=== PATIENT | male | born 1950 | race African-American/Black ===

== ENCOUNTER 2021-06-01 09:13 | Inpatient (IN) ==
[2021-06-01 17:41] LABS: Basophils % 0.1 % (0.0-0.8); Eosinophils # 0.1 10*3/uL (0.0-0.87); Eosinophils % 0.8 % (0.00-10.9); Hematocrit 35.4 VOL% (42.0-52.0); Hemoglobin 10.8 GM/DL (14.0-18.0); Immature Granulocytes % 0.7 %; Immature Granulocytes Absolute 0.06 #; Lymphocytes # 0.9 10*3/uL (1.4-4.0); Lymphocytes % 9.7 % (21.2-54.2); Mean Corpuscular HGB Conc 30.5 GM/DL (32-36); Mean Corpuscular Volume 82.7 FL (87-102); Mean Platelet Volume 9.3 FL (9.6-12.0); Monocytes % 12.4 % (1.7-12.7); Neutrophils % 76.3 % (38.7-73.9); Platelet Count 526 T/CUMM (130-400); Red Blood Count 4.28 MC/CUMM (3.8-5.5); Red Cell Distribution Width 14.2 % (9.3-17.3)
[2021-06-01 18:01] LABS: Bacteria,Urine Occasional /HPF (Few); Bilirubin,Urine Negative (Negative); Blood, Urine Negative (Negative); Glucose,Urine (UA) Negative (Negative); Hyaline Casts,Urine 39 /LPF (0-3); Ketones,Urine Negative (Negative); Mucus,Urine Occasional /LPF (Occasional); Nitrite,Urine Negative (Negative); Protein,Urine 100 MG/DL; RBC,Urine 5 /HPF (0-4); Squamous Epithelial Cell,Urine Occasional /HPF (0-10); Urine Appearance Slightly Hazy (Clear); Urine Color Amber (Yellow); Urine Specific Gravity 1.019 (1.001-1.035); Urine Urobilinogen < 2.0 EU/DL (0.2-1.0)
[2021-06-01 18:08] LABS: Albumin 3.7 G/DL (3.4-5.0); Bilirubin,Total 0.6 MG/DL (0.20-1.00); Calcium 9.4 MG/DL (8.5-10.1); Osmolality,Calculated 289.8 MOS/KG (273-304); Potassium 3.4 MMOL/L (3.5-5.1)
[2021-06-01] MEDS ORDERED: SODIUM CHLORIDE 0.9% 1,000 ML IV STA (19:12)
[2021-06-01] MEDS ORDERED: SODIUM CHLORIDE 0.9% 2,000 ML IV STA (19:12)
[2021-06-01] MEDS ORDERED: ACETAMINOPHEN 325 MG TABLET PO PRN (20:50)
[2021-06-01] MEDS ORDERED: DEXTROSE 50% 25 GM/50 ML VIAL IV PRN (20:50)
[2021-06-01] MEDS ORDERED: GLUCAGON 1 MG VIAL IM PRN (20:50)
[2021-06-01] MEDS ORDERED: chlorproMAZINE INJ 25 MG in SODIUM CHLORIDE 0.9% 100 ML IV PRN (20:59)
[2021-06-01] MEDS ORDERED: SODIUM CHLORIDE 0.9% 1,000 ML IV SCH (21:00)
[2021-06-01] MEDS: HEPARIN 5,000 UNIT/1 ML VIAL SUBCUT SCH (23:00)
[2021-06-01] MEDS ORDERED: PNEUMOCOCCAL VACCINE (13 VALENT) 0.5 ML SYRINGE IM ONE (23:58)
[2021-06-02 06:42] LABS: Albumin 3.1 G/DL (3.4-5.0); Bilirubin,Direct 0.28 MG/DL (0.0-0.20); Bilirubin,Indirect 0.6 MG/DL (0.0-1.0); Bilirubin,Total 0.9 MG/DL (0.20-1.00); Total Protein 7.9 G/DL (6.4-8.2)
[2021-06-02 06:48] LABS: Albumin 3.1 G/DL (3.4-5.0); Bilirubin,Total 1.3 MG/DL (0.20-1.00); Calcium 8.7 MG/DL (8.5-10.1); Osmolality,Calculated 299.1 MOS/KG (273-304); Potassium 2.9 MMOL/L (3.5-5.1); Thyroid Stimulating Hormone 2.53 uIU/ml (0.358-3.74); Total Protein 7.8 G/DL (6.4-8.2)
[2021-06-02 08:10] LABS: Hepatitis B Core IgM Quant < 0.05 Index; Hepatitis B Surface Ag Quant < 0.10 Index; Hepatitis B Surface Ag Result Non-Reactive (NonReactive); Hepatitis C Virus Ab Quant 0.12 Index; Hepatitis C Virus Ab Result Non-Reactive (NonReactive)
[2021-06-02] MEDS ORDERED: PANTOPRAZOLE 40 MG VIAL IV SCH (09:00)
[2021-06-02] MEDS: HEPARIN 5,000 UNIT/1 ML VIAL SUBCUT SCH (09:05)
[2021-06-02] MEDS: ONDANSETRON 4 MG/2 ML VIAL IV PRN ×2 (09:05→15:40)
[2021-06-02] MEDS: SODIUM CHLOR 0.9% KCL 40 MEQ 40 MEQ/1,000 ML BAG IV SCH ×2 (09:53→21:52)
[2021-06-02] MEDS: METOCLOPRAMIDE 10 MG/2 ML VIAL IV SCH ×3 (12:05→23:16)
[2021-06-02] MEDS: INSULIN LISPRO 100 UNIT/ML SUBCUT SCH ×2 (17:39→21:46)
[2021-06-02] MEDS: PANTOPRAZOLE 40 MG VIAL IV SCH (21:52)
[2021-06-03] MEDS: METOCLOPRAMIDE 10 MG/2 ML VIAL IV SCH ×3 (06:04→23:53)
[2021-06-03 06:22] LABS: Basophils % 0.2 % (0.0-0.8); Eosinophils # 0.1 10*3/uL (0.0-0.87); Eosinophils % 1.9 % (0.00-10.9); Hematocrit 28.5 VOL% (42.0-52.0); Hemoglobin 8.9 GM/DL (14.0-18.0); Immature Granulocytes % 0.6 %; Immature Granulocytes Absolute 0.03 #; Lymphocytes # 0.5 10*3/uL (1.4-4.0); Lymphocytes % 9.7 % (21.2-54.2); Mean Corpuscular HGB Conc 31.2 GM/DL (32-36); Mean Corpuscular Volume 82.1 FL (87-102); Mean Platelet Volume 9.9 FL (9.6-12.0); Monocytes % 9.9 % (1.7-12.7); Neutrophils % 77.7 % (38.7-73.9); Platelet Count 321 T/CUMM (130-400); Red Blood Count 3.47 MC/CUMM (3.8-5.5); Red Cell Distribution Width 14.3 % (9.3-17.3); White Blood Count 5.3 T/CUMM (4-12)
[2021-06-03 06:41] LABS: Albumin 2.8 G/DL (3.4-5.0); Bilirubin,Total 2.4 MG/DL (0.20-1.00); Calcium 8.8 MG/DL (8.5-10.1); Osmolality,Calculated 296.8 MOS/KG (273-304); Potassium 3.6 MMOL/L (3.5-5.1); Total Protein 6.9 G/DL (6.4-8.2)
[2021-06-03] MEDS ORDERED: LACTATED RINGERS 1,000 ML IV SCH (07:00)
[2021-06-03] MEDS ORDERED: LIDOCAINE 2% 5 ML VIAL ONE (07:13)
[2021-06-03] MEDS ORDERED: propofoL 200 MG/20 ML VIAL IV ONE (07:13)
[2021-06-03] MEDS: SODIUM CHLOR 0.9% KCL 40 MEQ 40 MEQ/1,000 ML BAG IV SCH (08:53)
[2021-06-03] MEDS: INSULIN LISPRO 100 UNIT/ML SUBCUT SCH ×3 (09:00→21:01)
[2021-06-03] MEDS: PANTOPRAZOLE 40 MG VIAL IV SCH ×2 (09:25→20:47)
[2021-06-03 15:50] LABS: INR 1.1
[2021-06-03] MEDS: ONDANSETRON 4 MG/2 ML VIAL IV PRN (20:44)
[2021-06-04] MEDS: SODIUM CHLOR 0.9% KCL 40 MEQ 40 MEQ/1,000 ML BAG IV SCH ×3 (00:10→20:15)
[2021-06-04] MEDS: METOCLOPRAMIDE 10 MG/2 ML VIAL IV SCH ×3 (05:43→17:52)
[2021-06-04 06:18] LABS: Basophils % 0.2 % (0.0-0.8); Eosinophils # 0.1 10*3/uL (0.0-0.87); Eosinophils % 2.5 % (0.00-10.9); Hematocrit 30.2 VOL% (42.0-52.0); Immature Granulocytes % 0.9 %; Immature Granulocytes Absolute 0.05 #; Lymphocytes # 0.5 10*3/uL (1.4-4.0); Lymphocytes % 8.1 % (21.2-54.2); Mean Corpuscular HGB Conc 29.8 GM/DL (32-36); Mean Corpuscular Volume 84.4 FL (87-102); Mean Platelet Volume 9.9 FL (9.6-12.0); Monocytes % 9.7 % (1.7-12.7); Neutrophils % 78.6 % (38.7-73.9); Platelet Count 310 T/CUMM (130-400); Red Blood Count 3.58 MC/CUMM (3.8-5.5); Red Cell Distribution Width 14.2 % (9.3-17.3); White Blood Count 5.7 T/CUMM (4-12)
[2021-06-04 06:49] LABS: Bilirubin,Total 3.5 MG/DL (0.20-1.00); Calcium 8.9 MG/DL (8.5-10.1)
[2021-06-04 06:50] LABS: Albumin 2.6 G/DL (3.4-5.0); Osmolality,Calculated 295.4 MOS/KG (273-304); Potassium 3.8 MMOL/L (3.5-5.1); Total Protein 7.2 G/DL (6.4-8.2)
[2021-06-04] MEDS: INSULIN LISPRO 100 UNIT/ML SUBCUT SCH ×3 (08:05→16:34)
[2021-06-04] MEDS: PANTOPRAZOLE 40 MG VIAL IV SCH ×2 (08:07→20:31)
[2021-06-04] MEDS: ONDANSETRON 4 MG/2 ML VIAL IV PRN (20:27)
[2021-06-05] MEDS: INSULIN LISPRO 100 UNIT/ML SUBCUT SCH ×3 (00:21→11:50)
[2021-06-05] MEDS: METOCLOPRAMIDE 10 MG/2 ML VIAL IV SCH ×3 (00:29→12:01)
[2021-06-05 05:28] LABS: Basophils % 0.1 % (0.0-0.8); Eosinophils # 0.1 10*3/uL (0.0-0.87); Eosinophils % 1.6 % (0.00-10.9); Hematocrit 29.9 VOL% (42.0-52.0); Hemoglobin 8.8 GM/DL (14.0-18.0); Immature Granulocytes % 0.5 %; Immature Granulocytes Absolute 0.04 #; Lymphocytes # 0.6 10*3/uL (1.4-4.0); Lymphocytes % 7.7 % (21.2-54.2); Mean Corpuscular HGB Conc 29.4 GM/DL (32-36); Mean Corpuscular Volume 85.9 FL (87-102); Mean Platelet Volume 10.3 FL (9.6-12.0); Monocytes % 8.2 % (1.7-12.7); Neutrophils % 81.9 % (38.7-73.9); Platelet Count 397 T/CUMM (130-400); Red Blood Count 3.48 MC/CUMM (3.8-5.5); Red Cell Distribution Width 14.4 % (9.3-17.3); White Blood Count 7.7 T/CUMM (4-12)
[2021-06-05 06:04] LABS: Albumin 2.8 G/DL (3.4-5.0); Bilirubin,Total 4.4 MG/DL (0.20-1.00); Calcium 9.1 MG/DL (8.5-10.1); Potassium 4.5 MMOL/L (3.5-5.1); Total Protein 7.1 G/DL (6.4-8.2)
[2021-06-05] MEDS: PANTOPRAZOLE 40 MG VIAL IV SCH (07:47)
[2021-06-05] MEDS: ONDANSETRON 4 MG/2 ML VIAL IV PRN (07:51)
[2021-06-05 14:58] VITALS: BP 139/84
[2021-06-06 10:18] LABS: 25-Hydroxy D Total 43 ng/mL; 25-Hydroxy D2 < 4.0 ng/mL; 25-Hydroxy D3 43 ng/mL
== END 2021-06-05 13:48 | disposition home or self-care (01) | DRG 435 ==
LOC: N.ED 09:13 → SUATTDRO 20:13 → N.EDINP 20:13 → N.5E 23:40 → N.OB 06-02 23:55
PROVIDERS: ADMIT Phlebology; ATTEND Hospitalist

== ENCOUNTER 2021-06-06 22:57 | Inpatient (IN) ==
[2021-06-07] MEDS ORDERED: PANTOPRAZOLE 40 MG VIAL IV STA (00:16)
[2021-06-07] MEDS ORDERED: ONDANSETRON 4 MG/2 ML VIAL IV STA (00:16)
[2021-06-07] MEDS ORDERED: SODIUM CHLORIDE 0.9% 500 ML IV STA (00:16)
[2021-06-07 01:19] LABS: Hematocrit 26.1 VOL% (42.0-52.0); Hemoglobin 8.1 GM/DL (14.0-18.0); Immature Granulocytes % 1.2 %; Immature Granulocytes Absolute 0.13 #; Lymphocytes # 0.6 10*3/uL (1.4-4.0); Lymphocytes % 5.2 % (21.2-54.2); Mean Corpuscular Volume 81.1 FL (87-102); Mean Platelet Volume 9.9 FL (9.6-12.0); Monocytes % 8.6 % (1.7-12.7); Platelet Count 390 T/CUMM (130-400); Red Blood Count 3.22 MC/CUMM (3.8-5.5); Red Cell Distribution Width 14.6 % (9.3-17.3); White Blood Count 10.5 T/CUMM (4-12)
[2021-06-07 01:31] LABS: INR 1.1; PT Patient Result 12.4 SECS (10.5-12.0)
[2021-06-07 01:36] LABS: Albumin 2.5 G/DL (3.4-5.0); Bilirubin,Total 1.9 MG/DL (0.20-1.00); Calcium 9.2 MG/DL (8.5-10.1); Osmolality,Calculated 303.7 MOS/KG (273-304); Total Protein 6.4 G/DL (6.4-8.2)
[2021-06-07] MEDS ORDERED: ONDANSETRON 4 MG/2 ML VIAL IV PRN (02:39)
[2021-06-07] MEDS ORDERED: GLUCAGON 1 MG VIAL IM PRN (02:39)
[2021-06-07] MEDS ORDERED: ACETAMINOPHEN 325 MG TABLET PO PRN (02:39)
[2021-06-07 08:13] LABS: Hepatitis B Core IgM Quant 0.14 Index; Hepatitis B Surface Ag Quant < 0.10 Index; Hepatitis B Surface Ag Result Non-Reactive (NonReactive); Hepatitis C Virus Ab Quant 0.13 Index; Hepatitis C Virus Ab Result Non-Reactive (NonReactive)
[2021-06-07] MEDS ORDERED: cefTRIAXone 1,000 MG in SODIUM CHLORIDE 0.9% 100 ML IV SCH (09:00)
[2021-06-07] MEDS ORDERED: AZITHROMYCIN INJ 500 MG in SODIUM CHLORIDE 0.9% 250 ML IV SCH (09:30)
[2021-06-07] MEDS: PANTOPRAZOLE 40 MG VIAL IV SCH ×2 (10:17→21:13)
[2021-06-07] MEDS: PIPERACILLIN/TAZOBACTAM 3,375 MG in SODIUM CHLORIDE 0.9% 100 ML IV SCH ×2 (10:18→18:54)
[2021-06-07] MEDS: METOCLOPRAMIDE 10 MG/2 ML VIAL IV SCH ×3 (13:17→23:53)
[2021-06-07] MEDS ORDERED: LACTATED RINGERS 1,000 ML IV ONE (15:50)
[2021-06-07] MEDS ORDERED: DOPamine 800 MG/250 ML PREMIX IV PRN (15:51)
[2021-06-07 16:41] LABS: ABG HCO3 11.3 MMOL/L (20-26); ABG Oxygen Saturation 92.8 % (95-100); ABG PH 7.327 (7.35-7.45); ABG TCO2 7.6 MMOL/L (23-27)
[2021-06-07 16:52] LABS: ABG PCO2 15.3 MM HG (35-48)
[2021-06-07] MEDS ORDERED: MIDAZOLAM 2 MG/2 ML VIAL ONE (16:57)
[2021-06-07] MEDS ORDERED: SUCCINYLCHOLINE 200 MG/10 ML VIAL ONE (16:58)
[2021-06-07] MEDS ORDERED: ETOMIDATE 20 MG/10 ML VIAL IV ONE ×2 (16:58→17:01)
[2021-06-07] MEDS ORDERED: SUCCINYLCHOLINE 200 MG/10 ML VIAL IV ONE (17:02)
[2021-06-07] MEDS ORDERED: METOPROLOL TARTRATE 5 MG/5 ML VIAL IV ONE (17:57)
[2021-06-07 17:58] LABS: Bacteria,Urine Occasional /HPF (Few); Bilirubin,Urine Negative (Negative); Blood, Urine Small mg/dL (Negative); Glucose,Urine (UA) >=500 mg/dL (Negative); Granular Casts,Urine 45 /LPF (0-1); Hyaline Casts,Urine 19 /LPF (0-3); Ketones,Urine Negative (Negative); Mucus,Urine Occasional /LPF (Occasional); Nitrite,Urine Negative (Negative); Protein,Urine 30 MG/DL; RBC,Urine 2 /HPF (0-4); Squamous Epithelial Cell,Urine Occasional /HPF (0-10); Urine Appearance Slightly Hazy (Clear); Urine Color Amber (Yellow); Urine Specific Gravity 1.023 (1.001-1.035)
[2021-06-07] MEDS ORDERED: AMIODARONE 150 MG/3 ML VIAL ONE (17:58)
[2021-06-07] MEDS ORDERED: AMIODARONE 450 MG/9 ML VIAL IV ONE (17:59)
[2021-06-07] MEDS ORDERED: AMIODARONE INJ 150 MG in DEXTROSE 5% 100 ML IV ONE (18:00)
[2021-06-07] MEDS: MIDAZOLAM 100 MG in SODIUM CHLORIDE 0.9% 80 ML IV PRN (18:10)
[2021-06-07 18:11] LABS: ABG Base Excess -18.9 MMOL/L (-2.5-2.5); ABG HCO3 9.7 MMOL/L (20-26); ABG Oxygen Saturation 96.9 % (95-100); ABG PCO2 33.9 MM HG (35-48); ABG PO2 137.7 MM HG (80-95); ABG TCO2 10.8 MMOL/L (23-27); Basophils % 0.1 % (0.0-0.8); Eosinophils % 0.1 % (0.00-10.9); Hemoglobin 7.4 GM/DL (14.0-18.0); Immature Granulocytes % 1.8 %; Immature Granulocytes Absolute 0.16 #; Lymphocytes # 1.5 10*3/uL (1.4-4.0); Lymphocytes % 16.8 % (21.2-54.2); Mean Corpuscular HGB Conc 28.5 GM/DL (32-36); Mean Platelet Volume 10.3 FL (9.6-12.0); Monocytes % 7.7 % (1.7-12.7); NRBC # 0.38 10*3/uL; Neutrophils % 73.5 % (38.7-73.9); Platelet Count 476 T/CUMM (130-400); Red Blood Count 2.92 MC/CUMM (3.8-5.5); White Blood Count 9.1 T/CUMM (4-12)
[2021-06-07 18:13] LABS: ABG PH 7.076 (7.35-7.45)
[2021-06-07] MEDS ORDERED: SODIUM BICARBONATE 50 MEQ/50 ML VIAL IV ONE ×4 (18:23→22:25)
[2021-06-07] MEDS ORDERED: LEVOFLOXACIN INJ 750 MG/150 ML PREMIX IV SCH (18:30)
[2021-06-07] MEDS ORDERED: AMIODARONE INJ 450 MG in DEXTROSE 5% 241 ML IV SCH (18:30)
[2021-06-07] MEDS ORDERED: PHENYLEPHRINE DRIP 40 MG/250 ML PREMIX IV ONE (18:31)
[2021-06-07 18:32] LABS: Albumin 1.9 G/DL (3.4-5.0); Bilirubin,Total 1.6 MG/DL (0.20-1.00); Calcium 8.9 MG/DL (8.5-10.1); Osmolality,Calculated 311.4 MOS/KG (273-304); Potassium 4.5 MMOL/L (3.5-5.1); Total Protein 5.4 G/DL (6.4-8.2)
[2021-06-07 18:55] LABS: Anisocytosis 3+; Hypochromasia 3+; Lymphocytes 27 % (20-55); Metamyelocytes 5 %; Microcytosis 3+; Nucleated Red Blood Cells 7 (0-5); Poikilocytosis 1+; Rouleau 2+; Segmented Neutrophils 65 % (50-85); Total Cells Counted 100
[2021-06-07] MEDS ORDERED: PHENYLEPHRINE DRIP 40 MG/250 ML PREMIX IV PRN (18:56)
[2021-06-07 20:20] LABS: ABG Base Excess -16.5 MMOL/L (-2.5-2.5); ABG HCO3 11.6 MMOL/L (20-26); ABG Oxygen Saturation 99.4 % (95-100); ABG PCO2 30.9 MM HG (35-48); ABG TCO2 10.7 MMOL/L (23-27)
[2021-06-07 20:21] LABS: ABG PH 7.159 (7.35-7.45)
[2021-06-07] MEDS: SODIUM BICARB INJ 100 MEQ in SODIUM CHLORIDE 0.45% 1,000 ML IV SCH (21:09)
[2021-06-07] MEDS: PHENYLEPHRINE INJ 160 MG in SODIUM CHLORIDE 0.9% 234 ML IV PRN (22:00)
[2021-06-07 22:02] LABS: ABG Base Excess -13.3 MMOL/L (-2.5-2.5); ABG HCO3 13.9 MMOL/L (20-26); ABG Oxygen Saturation 99.4 % (95-100); ABG PH 7.227 (7.35-7.45); ABG TCO2 12.9 MMOL/L (23-27)
[2021-06-07] MEDS ORDERED: SODIUM CHLORIDE 0.9% 1,000 ML IV ONE (22:16)
[2021-06-07 22:32] LABS: Basophils % 0.2 % (0.0-0.8); Eosinophils % 0.2 % (0.00-10.9); Hematocrit 21.3 VOL% (42.0-52.0); Immature Granulocytes Absolute 0.09 #; Lymphocytes # 0.8 10*3/uL (1.4-4.0); Lymphocytes % 18.8 % (21.2-54.2); Mean Corpuscular HGB Conc 29.1 GM/DL (32-36); Mean Corpuscular Volume 87.3 FL (87-102); Mean Platelet Volume 10.8 FL (9.6-12.0); Monocytes % 8.3 % (1.7-12.7); Neutrophils % 70.5 % (38.7-73.9); Red Cell Distribution Width 14.6 % (9.3-17.3)
[2021-06-07 22:33] LABS: Platelet Count 335 T/CUMM (130-400)
[2021-06-07] MEDS ORDERED: NOREPINEPHRINE 4 MG/4 ML VIAL IV ONE (22:34)
[2021-06-07 22:35] LABS: Hemoglobin 6.2 GM/DL (14.0-18.0); Red Blood Count 2.44 MC/CUMM (3.8-5.5); White Blood Count 4.5 T/CUMM (4-12)
[2021-06-07] MEDS: NOREPINEPHRINE 8 MG in SODIUM CHLORIDE 0.9% 242 ML IV PRN (22:40)
[2021-06-07] MEDS ORDERED: SODIUM CHLORIDE 0.9% 1,000 ML IV PRN (22:42)
[2021-06-07] MEDS ORDERED: MORPHINE 2 MG/1 ML SYRINGE ONE (22:54)
[2021-06-07] MEDS: MORPHINE 2 MG/1 ML SYRINGE IV PRN (23:00)
[2021-06-07] MEDS: ALBUMIN 5% 25 GM/500 ML VIAL IV SCH (23:08)
[2021-06-08 00:42] LABS: ABG Base Excess -13.4 MMOL/L (-2.5-2.5); ABG HCO3 13.7 MMOL/L (20-26); ABG Oxygen Saturation 99.8 % (95-100); ABG PCO2 29.8 MM HG (35-48); ABG PH 7.245 (7.35-7.45); ABG TCO2 12.7 MMOL/L (23-27)
[2021-06-08] MEDS ORDERED: SODIUM BICARBONATE 50 MEQ/50 ML VIAL IV ONE ×4 (01:00→22:01)
[2021-06-08] MEDS: PIPERACILLIN/TAZOBACTAM 3,375 MG in SODIUM CHLORIDE 0.9% 100 ML IV SCH ×2 (01:30→12:29)
[2021-06-08] MEDS: AMIODARONE INJ 450 MG in DEXTROSE 5% 241 ML IV SCH ×2 (01:51→17:40)
[2021-06-08 02:30] LABS: Band Neutrophils 12 % (0-10); Lymphocytes 27 % (20-55); Metamyelocytes 17 %; Myelocytes 2 %; Nucleated Red Blood Cells 15 (0-5); Segmented Neutrophils 31 % (50-85)
[2021-06-08] MEDS: MORPHINE 2 MG/1 ML SYRINGE IV PRN ×2 (02:30→06:15)
[2021-06-08 02:33] LABS: Hypochromasia 1+; Platelet Estimate Normal; Reactive Lymphocytes 2+
[2021-06-08 02:34] LABS: Polychromasia Few
[2021-06-08 02:37] LABS: Total Cells Counted 100
[2021-06-08 04:10] LABS: ABG HCO3 13.9 MMOL/L (20-26); ABG Oxygen Saturation 98.1 % (95-100); ABG PCO2 26.7 MM HG (35-48); ABG PH 7.333 (7.35-7.45); ABG PO2 236.2 MM HG (80-95); ABG TCO2 14.7 MMOL/L (23-27)
[2021-06-08 04:54] LABS: Albumin 1.8 G/DL (3.4-5.0); Bilirubin,Total 1.8 MG/DL (0.20-1.00); Calcium 7.6 MG/DL (8.5-10.1); Osmolality,Calculated 317.6 MOS/KG (273-304); Potassium 3.8 MMOL/L (3.5-5.1); Total Protein 4.1 G/DL (6.4-8.2)
[2021-06-08] MEDS: PHENYLEPHRINE INJ 160 MG in SODIUM CHLORIDE 0.9% 234 ML IV PRN ×2 (05:30→18:31)
[2021-06-08] MEDS: METOCLOPRAMIDE 10 MG/2 ML VIAL IV SCH ×4 (06:08→23:24)
[2021-06-08] MEDS: ALBUMIN 5% 25 GM/500 ML VIAL IV SCH (06:35)
[2021-06-08 07:14] LABS: ABG Base Excess -7.1 MMOL/L (-2.5-2.5); ABG HCO3 18.6 MMOL/L (20-26); ABG Oxygen Saturation 99.9 % (95-100); ABG PH 7.392 (7.35-7.45)
[2021-06-08 07:29] LABS: Basophils # 0.1 10*3/uL (0.0-0.2); Basophils % 0.7 % (0.0-0.8); Eosinophils # 0.1 10*3/uL (0.0-0.87); Eosinophils % 0.7 % (0.00-10.9); Hematocrit 25.2 VOL% (42.0-52.0); Immature Granulocytes % 2.1 %; Lymphocytes # 0.9 10*3/uL (1.4-4.0); Lymphocytes % 9.7 % (21.2-54.2); Mean Corpuscular HGB Conc 32.5 GM/DL (32-36); Mean Corpuscular Volume 85.7 FL (87-102); Mean Platelet Volume 11.2 FL (9.6-12.0); Monocytes % 2.5 % (1.7-12.7); NRBC # 1.75 10*3/uL; Neutrophils % 84.3 % (38.7-73.9); Red Cell Distribution Width 15.6 % (9.3-17.3)
[2021-06-08 07:31] LABS: Hemoglobin 8.2 GM/DL (14.0-18.0); Red Blood Count 2.94 MC/CUMM (3.8-5.5); White Blood Count 9.4 T/CUMM (4-12)
[2021-06-08 07:32] LABS: Platelet Count 180 T/CUMM (130-400)
[2021-06-08 07:53] LABS: Band Neutrophils 12 % (0-10); Eosinophils 1 % (0-10); Lymphocytes 8 % (20-55); Metamyelocytes 2 %; Nucleated Red Blood Cells 21 (0-5); Segmented Neutrophils 70 % (50-85); Total Cells Counted 100
[2021-06-08 07:54] LABS: Hypochromasia 1+; Microcytosis 1+; Ovalocytes Slight; Platelet Estimate Adequate; Polychromasia Slight
[2021-06-08] MEDS: SODIUM BICARB INJ 100 MEQ in SODIUM CHLORIDE 0.45% 1,000 ML IV SCH ×2 (08:02→19:25)
[2021-06-08] MEDS: PANTOPRAZOLE 40 MG VIAL IV SCH ×2 (08:10→20:54)
[2021-06-08] MEDS: NOREPINEPHRINE 8 MG in SODIUM CHLORIDE 0.9% 242 ML IV PRN ×2 (10:37→18:32)
[2021-06-08] MEDS ORDERED: NOREPINEPHRINE 4 MG/4 ML VIAL IV ONE (18:27)
[2021-06-08 20:27] LABS: ABG Base Excess -17.5 MMOL/L (-2.5-2.5); ABG Oxygen Saturation 98.8 % (95-100); ABG PCO2 28.5 MM HG (35-48); ABG TCO2 9.8 MMOL/L (23-27)
[2021-06-08 20:29] LABS: ABG PH 7.156 (7.35-7.45)
[2021-06-08] MEDS: DEXTROSE 50% 25 GM/50 ML VIAL IV PRN (21:13)
[2021-06-08 21:55] LABS: ABG HCO3 12.7 MMOL/L (20-26); ABG Oxygen Saturation 98.7 % (95-100); ABG PCO2 31.4 MM HG (35-48); ABG TCO2 11.7 MMOL/L (23-27); Glucose Heart Surgery 132 MG/DL (74-106); Hematocrit Heart Surgery 21.9 PERCENT (42-52); Potassium Heart/CVR 4.6 MMOL/L (3.5-5.1)
[2021-06-08 21:56] LABS: ABG PH 7.193 (7.35-7.45)
[2021-06-09] MEDS: NOREPINEPHRINE 8 MG in SODIUM CHLORIDE 0.9% 242 ML IV PRN ×3 (00:21→07:00)
[2021-06-09] MEDS: PIPERACILLIN/TAZOBACTAM 3,375 MG in SODIUM CHLORIDE 0.9% 100 ML IV SCH (00:26)
[2021-06-09] MEDS: DEXTROSE 50% 25 GM/50 ML VIAL IV PRN ×2 (00:31→01:36)
[2021-06-09] MEDS: MIDAZOLAM 100 MG in SODIUM CHLORIDE 0.9% 80 ML IV PRN (01:05)
[2021-06-09] MEDS ORDERED: HYDROCORTISONE 100 MG VIAL IV SCH (02:00)
[2021-06-09] MEDS ORDERED: SODIUM BICARB INJ 100 MEQ in DEXTROSE 5% NACL 0.45% 1,000 ML IV SCH (02:30)
[2021-06-09 04:03] LABS: ABG Base Excess -20.9 MMOL/L (-2.5-2.5); ABG HCO3 7.5 MMOL/L (20-26); ABG Oxygen Saturation 98.3 % (95-100); ABG PCO2 26.5 MM HG (35-48); ABG PO2 209.3 MM HG (80-95); ABG TCO2 8.3 MMOL/L (23-27)
[2021-06-09 04:04] LABS: Basophils # 0.1 10*3/uL (0.0-0.2); Basophils % 0.5 % (0.0-0.8); Eosinophils % 0.1 % (0.00-10.9); Hematocrit 23.3 VOL% (42.0-52.0); Hemoglobin 6.8 GM/DL (14.0-18.0); Immature Granulocytes % 5.6 %; Immature Granulocytes Absolute 0.97 #; Lymphocytes # 1.2 10*3/uL (1.4-4.0); Lymphocytes % 6.9 % (21.2-54.2); Mean Corpuscular HGB Conc 29.2 GM/DL (32-36); Mean Corpuscular Volume 93.2 FL (87-102); Mean Platelet Volume 11.8 FL (9.6-12.0); Monocytes % 3.2 % (1.7-12.7); NRBC # 4.13 10*3/uL; Neutrophils % 83.7 % (38.7-73.9); Platelet Count 140 T/CUMM (130-400); Red Cell Distribution Width 16.2 % (9.3-17.3); White Blood Count 17.4 T/CUMM (4-12)
[2021-06-09 04:24] LABS: ABG PH 7.068 (7.35-7.45)
[2021-06-09] MEDS ORDERED: SODIUM BICARBONATE 50 MEQ/50 ML VIAL IV ONE ×2 (04:33)
[2021-06-09 04:46] LABS: Band Neutrophils 7 % (0-10); Lymphocytes 14 % (20-55); Metamyelocytes 3 %; Myelocytes 1 %; Nucleated Red Blood Cells 47 (0-5); Platelet Estimate Normal; Segmented Neutrophils 70 % (50-85)
[2021-06-09 04:47] LABS: Hypochromasia 1+; Total Cells Counted 100
[2021-06-09] MEDS: PHENYLEPHRINE INJ 160 MG in SODIUM CHLORIDE 0.9% 234 ML IV PRN (04:48)
[2021-06-09 04:57] LABS: Albumin 1.5 G/DL (3.4-5.0); Bilirubin,Total 3.4 MG/DL (0.20-1.00); Calcium 7.3 MG/DL (8.5-10.1); Osmolality,Calculated 325.1 MOS/KG (273-304); Potassium 5.3 MMOL/L (3.5-5.1); Total Protein 3.8 G/DL (6.4-8.2)
[2021-06-09] MEDS ORDERED: SODIUM BICARB INJ 150 MEQ in DEXTROSE 5% 850 ML IV SCH (05:00)
[2021-06-09] MEDS: METOCLOPRAMIDE 10 MG/2 ML VIAL IV SCH (05:57)
[2021-06-09 07:35] VITALS: BP 132/33
[2021-06-09] MEDS: AMIODARONE INJ 450 MG in DEXTROSE 5% 241 ML IV SCH (07:58)
[2021-06-09] MEDS: PANTOPRAZOLE 40 MG VIAL IV SCH (08:02)
[2021-06-09] MEDS ORDERED: LEVOFLOXACIN INJ 500 MG/100 ML PREMIX IV SCH (18:00)
== END 2021-06-09 10:11 | disposition expired | DRG 374 ==
LOC: EDBD → EDUNIT# → N.ED 22:57 → INTOOBSV 06-07 02:39 → N.EDINP 06-07 02:39 → N.5E 06-07 05:06 → SUATTDRO 06-07 07:57 → N.CVR 06-07 15:00
PROVIDERS: ADMIT Internal Medicine; ATTEND Internal Medicine